=== PATIENT | female | born 1940 | race Caucasian/White ===

== ENCOUNTER → 2020-09-08 18:44 | Outpatient (CLI) | payer MEDICARE, SELFPAY ==
[2020-09-08 19:00] LABS: Alanine Aminotransferase 12 U/L (12-78); Albumin Level 4.1 g/dl (3.5-5.0); Albumin/Globulin Ratio 1.5 (1.1-1.8); Alkaline Phosphatase 90 U/L (38-126); Anion Gap 11.5 mEq/L (5-15); Aspartate Amino Transferase 28 U/L (14-36); Bilirubin,Total 0.5 mg/dl (0.2-1.3); Blood Urea Nitrogen 11 mg/dl (7-17); Calcium 10.5 mg/dl (8.4-10.2); Carbon Dioxide 31 mmol/L (22.0-30.0); Chloride 104 mmol/L (98-107); Chol/HDL Ratio 2.6 (1-3.5); Cholesterol 168 mg/dl (140-200); Estimated Glomerular Filt Rate 81 ml/min (>60); GFR (African American) 97 ML/MIN (>60); Globulin 2.8 g/dL (1.3-3.2); Glucose 69 mg/dl (74-100); HDL Cholesterol 65 mg/dl (40-60); Potassium 4.5 mmoL/L (3.5-5.1); Sodium 142 mmol/L (136-145); Total Protein,Serum 6.9 g/dl (6.3-8.2); Triglycerides 88 mg/dl (30-150); VLDL Cholesterol 18 mg/dL (0-40)
[2020-09-08 19:08] LABS: Basophils # 0.1 K/mm3 (0-0.2); Basophils % 0.8 % (0.1-2.0); Eosinophils # 0.1 K/mm3 (0.0-0.4); Eosinophils % 1.2 % (0.1-12.0); Hematocrit 47.5 % (37.0-47.0); Hemoglobin 15.1 g/dL (12.2-16.2); Lymphocytes # 1.7 K/mm3 (0.7-4.5); Lymphocytes % 24.9 % (10-50); Mean Corpuscular HGB Conc 31.8 g/dL (31.8-35.4); Mean Corpuscular Hemoglobin 32.6 pg (27.0-31.2); Mean Corpuscular Volume 102.6 fl (81-99); Mean Platelet Volume 10.5 fl (7.4-10.4); Monocytes # 0.4 K/mm3 (0.1-1.0); Monocytes % 6.5 % (1.7-9.3); Neutrophils # 4.5 K/mm3 (1.8-7.8); Neutrophils % 66.4 % (37.0-80.0); Platelet Count 373 K/mm3 (142-424); Red Blood Count 4.63 M/mm3 (4.20-5.40); Red Cell Distribution Width 13.3 % (11.5-17.5); White Blood Count 6.7 K/mm3 (4.8-10.8)
[2020-09-08 19:11] LABS: Direct LDL Cholesterol 91.21 mg/dL (100-129)
[2020-09-08 19:17] LABS: 25-OH Vitamin D, Total 22.7 ng/mL (30-100)
[2020-09-08 19:18] LABS: Free T4 (Free Thyroxine) 1.47 ng/dl (0.78-2.19)
[2020-09-08 19:31] LABS: Thyroid Stimulating Hormone 1.35 uIU/mL (0.465-4.68)
[2020-09-08 19:49] LABS: Vitamin B12 604 pg/mL (239-931)
== END ==
PROVIDERS: Visit Provider Family Medicine
DX: E78.5 Hyperlipidemia, unspecified (principal); R42 Dizziness and giddiness; E55.9 Vitamin D deficiency, unspecified
CPT/HCPCS: 80053; 80061; 82306; 82607; 84439; 84443; 85025

== ENCOUNTER → 2021-06-26 11:55 | Outpatient (CLI) | payer MEDICARE, SELFPAY ==
--- NOTE | 2021-06-26 11:58 | XR_ITS ---
PROCEDURE: XR CHEST 2V CLINICAL HISTORY: cough COMPARISON: No exams were available for comparison FINDINGS: The cardiomediastinal silhouette and pulmonary vascularity are within normal limits. The lungs are clear without infiltrates, suspicious nodules, or pleural effusions. No acute bony abnormalities. IMPRESSION: No acute findings. Dictated by: Herbert Ramires MD 06/26/2021 12:28 Herbert Ramires MD in [place] 06/26/2021 12:28
[2021-06-26 15:30] LABS: Adenovirus,PCR Not Detected (NotDetected); Bordetella Pertussis Not Detected (NotDetected); Chlamydophila Pneumoniae, PCR Not Detected (NotDetected); Coronavirus 19, PCR Not Detected (NotDetected); Coronavirus 229E Not Detected (NotDetected); Coronavirus NL63 Not Detected (NotDetected); Coronavirus OC43 Not Detected (NotDetected); Coronovirus HKU1,PCR Not Detected (NotDetected); Human Metapneumovirus Not Detected (NotDetected); Influenza A, PCR Not Detected (NotDetected); Influenza AH1, 2009 Not Detected (NotDetected); Influenza AH1, PCR Not Detected (NotDetected); Influenza AH3,PCR Not Detected (NotDetected); Influenza B, PCR Not Detected (NotDetected); Mycoplasma Pneumoniae, PCR Not Detected (NotDetected); Parainfluenza 1, PCR Not Detected (NotDetected); Parainfluenza 2, PCR Not Detected (NotDetected); Parainfluenza 3, PCR Not Detected (NotDetected); Parainfluenza 4, PCR Not Detected (NotDetected); Respiratory Syncytial Virus Not Detected (NotDetected)
[2021-06-26 15:38] LABS: Basophils % 0.5 % (0.1-2.0); Eosinophils # 0.1 K/mm3 (0.0-0.4); Eosinophils % 1.4 % (0.1-12.0); Hematocrit 46.2 % (37.0-47.0); Hemoglobin 14.6 g/dL (12.2-16.2); Lymphocytes # 1.9 K/mm3 (0.7-4.5); Lymphocytes % 22.8 % (10-50); Mean Corpuscular HGB Conc 31.7 g/dL (31.8-35.4); Mean Corpuscular Hemoglobin 33.2 pg (27.0-31.2); Mean Corpuscular Volume 104.6 fl (81-99); Mean Platelet Volume 10.3 fl (7.4-10.4); Monocytes # 0.6 K/mm3 (0.1-1.0); Monocytes % 6.9 % (1.7-9.3); Neutrophils # 5.8 K/mm3 (1.8-7.8); Neutrophils % 68.3 % (37.0-80.0); Platelet Count 314 K/mm3 (142-424); Red Blood Count 4.42 M/mm3 (4.20-5.40); Red Cell Distribution Width 13.3 % (11.5-17.5); White Blood Count 8.4 K/mm3 (4.8-10.8)
[2021-06-26 16:02] LABS: Alanine Aminotransferase 15 U/L (12-78); Albumin Level 4.1 g/dl (3.5-5.0); Albumin/Globulin Ratio 1.5 (1.1-1.8); Alkaline Phosphatase 72 U/L (38-126); Anion Gap 14.3 mEq/L (5-15); Aspartate Amino Transferase 28 U/L (14-36); Bilirubin,Total 0.6 mg/dl (0.2-1.3); Blood Urea Nitrogen 15 mg/dl (7-17); Calcium 9.8 mg/dl (8.4-10.2); Carbon Dioxide 29 mmol/L (22.0-30.0); Chloride 104 mmol/L (98-107); Estimated Glomerular Filt Rate 80 ml/min (>60); GFR (African American) 97 ML/MIN (>60); Globulin 2.7 g/dL (1.3-3.2); Glucose 59 mg/dl (74-100); Potassium 5.3 mmoL/L (3.5-5.1); Sodium 142 mmol/L (136-145); Total Protein,Serum 6.8 g/dl (6.3-8.2)
[2021-06-26 16:19] LABS: Free T4 (Free Thyroxine) 1.74 ng/dl (0.78-2.19)
[2021-06-26 16:33] LABS: Thyroid Stimulating Hormone 1.23 uIU/mL (0.465-4.68)
[2021-06-27 11:17] LABS: Rhinovirus/Enterovirus Detected (NotDetected)
== END ==
PROVIDERS: PCP Family Medicine; Visit Provider Emergency Medicine
DX: R05 Cough (principal); E05.90 Thyrotoxicosis, unspecified without thyrotoxic crisis or storm; B34.1 Enterovirus infection, unspecified
CPT/HCPCS: 71046; 80053; 84439; 84443; 85025; 87581; 87633; 87798

== ENCOUNTER 2021-08-12 09:31 | Outpatient (CLI) | payer MEDICARE, SELFPAY ==
[2021-08-12] VITALS (7 sets, daily range): BP systolic 133–144; BP diastolic 53–84; PULSE 60–68; RESP 16; TEMP 36.9–37.1; O2SAT 98–99
== END 2021-08-12 12:38 | disposition home or self-care (01) ==
LOC: INF 09:34
PROVIDERS: PCP Family Medicine; Visit Provider Family Medicine
DX: U07.1 COVID-19 (principal)
CPT/HCPCS: 96365

== ENCOUNTER → 2022-06-01 06:35 | Outpatient (CLI) | payer MEDICARE, SELFPAY ==
[2022-05-31 18:40] LABS: Basophils # 0.1 K/mm3 (0-0.2); Basophils % 1.5 % (0.1-2.0); Eosinophils # 0.2 K/mm3 (0.0-0.4); Eosinophils % 3.8 % (0.1-12.0); Hemoglobin 13.4 g/dL (12.2-16.2); Lymphocytes # 1.4 K/mm3 (0.7-4.5); Mean Corpuscular Hemoglobin 33.9 pg (27.0-31.2); Mean Corpuscular Volume 105.9 fl (81-99); Mean Platelet Volume 9.4 fl (7.4-10.4); Monocytes # 0.4 K/mm3 (0.1-1.0); Neutrophils % 64.6 % (37.0-80.0); Platelet Count 319 K/mm3 (142-424); Red Blood Count 3.96 M/mm3 (4.20-5.40); Red Cell Distribution Width 13.6 % (11.5-17.5); White Blood Count 6.3 K/mm3 (4.8-10.8)
[2022-05-31 18:59] LABS: Alanine Aminotransferase 18 U/L (12-78); Albumin Level 3.6 g/dl (3.5-5.0); Albumin/Globulin Ratio 1.4 (1.1-1.8); Alkaline Phosphatase 71 U/L (38-126); Aspartate Amino Transferase 26 U/L (14-36); Blood Urea Nitrogen 12 mg/dl (7-17); Carbon Dioxide 28 mmol/L (22.0-30.0); Chloride 108 mmol/L (98-107); Chol/HDL Ratio 3.2 (1-3.5); Cholesterol 164 mg/dl (140-200); Estimated Glomerular Filt Rate 80 ml/min (>60); GFR (African American) 97 ML/MIN (>60); Globulin 2.6 g/dL (1.3-3.2); Glucose 131 mg/dl (74-100); HDL Cholesterol 52 mg/dl (40-60); Sodium 139 mmol/L (136-145); Total Protein,Serum 6.2 g/dl (6.3-8.2); Triglycerides 84 mg/dl (30-150); VLDL Cholesterol 17 mg/dL (0-40)
[2022-05-31 19:02] LABS: Bilirubin,Total < 0.1 mg/dl (0.2-1.3)
[2022-05-31 19:03] LABS: Hemoglobin A1C 5.7 % (4.0-6.0)
[2022-05-31 19:33] LABS: Thyroid Stimulating Hormone 0.87 uIU/mL (0.465-4.68)
== END ==
PROVIDERS: PCP Family Medicine; Visit Provider Family Medicine
DX: E11.9 Type 2 diabetes mellitus without complications (principal); J32.9 Chronic sinusitis, unspecified
CPT/HCPCS: 80053; 80061; 83036; 84443; 85025

== ENCOUNTER → 2022-10-23 09:02 | Outpatient (CLI) | payer MEDICARE, SELFPAY ==
--- NOTE | 2022-10-23 09:02 | CT_ITS ---
FINAL REPORT TECHNIQUE: Axial images were obtained from the lung apex to the mid abdomen by computed tomography. Coronal reformatted images were obtained. This study was performed with techniques to keep radiation doses as low as reasonably achievable, (ALARA). Individualized dose reduction techniques using automated exposure control or adjustment of mA and/or kV according to the patient''s size were employed. CLINICAL HISTORY: Chronic cough FINDINGS: There is no axillary adenopathy. There is no hilar or mediastinal adenopathy. Heart size is normal. 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 There is no pericardial or pleural effusion. Limited images of the upper abdomen are unremarkable. The lung window images demonstrates mild pulmonary scarring. There are mild patchy pulmonary ground-glass opacities which may represent pneumonia or edema. There are multiple less than 1 cm bilateral pulmonary nodules. In addition, there are focal opacities in the right middle lobe and lingula, likely inflammatory and may represent pneumonia or mycobacterial/fungal diseases. IMPRESSION: Mild patchy pulmonary ground-glass opacities may represent pneumonia or edema. Focal opacities in the right middle lobe and lingula, likely inflammatory and may represent pneumonia or mycobacterial/fungal diseases. These abnormalities could be further evaluated with follow-up CT in 6 months. Reviewed, Interpreted and Dictated by Marky Denny III, MD Transcribed by Christy Rene Authenticated and [facility]
== END ==
PROVIDERS: PCP Family Medicine; Visit Provider Internal Medicine Pulmonary Disease
DX: R91.8 Other nonspecific abnormal finding of lung field (principal); R06.02 Shortness of breath
CPT/HCPCS: 71250; 94060; 94618; 94727; 94729

== ENCOUNTER → 2022-10-31 14:47 | Outpatient (CLI) | payer MEDICARE, SELFPAY | PROVIDERS: PCP Family Medicine; Visit Provider Internal Medicine Pulmonary Disease | DX: R06.02 Shortness of breath (principal) | CPT/HCPCS: 87070; 87077; 87116; 87186; 87205; 87206 ==

== ENCOUNTER → 2022-12-12 08:49 | Outpatient (CLI) | payer MEDICARE, SELFPAY ==
--- NOTE | 2022-12-12 08:54 | XR_ITS ---
FINAL REPORT CLINICAL HISTORY: pneumonia follow-up COMPARISON: 06/26/2021 FINDINGS: The heart is normal in size. The mediastinum is unremarkable. No acute pulmonary process. No pleural effusions. There is no pneumothorax. No acute osseous abnormality. IMPRESSION: No acute process. Reviewed, Interpreted and Dictated by Avtar Harrington MD Transcribed by Lesli Grayson Authenticated and [facility]
== END ==
PROVIDERS: PCP Family Medicine; Visit Provider Internal Medicine Pulmonary Disease
DX: R06.02 Shortness of breath (principal)
CPT/HCPCS: 71046

== ENCOUNTER → 2023-01-17 14:22 | Outpatient (CLI) | payer MEDICARE, SELFPAY ==
--- NOTE | 2023-01-17 14:34 | CT_ITS ---
PROCEDURE INFORMATION: Exam: CT Head Without Contrast Exam date and time: 01/17/2023 2:44 PM Age: 82 years old Clinical indication: Visual disturbance; Additional info: Vision changes TECHNIQUE: Imaging protocol: Computed tomography of the head without contrast. Radiation optimization: All CT scans at this facility use at least one of these dose optimization techniques: automated exposure control; mA and/or kV adjustment per patient size (includes targeted exams where dose is matched to clinical indication); or iterative reconstruction. REPORTING DATA: Count of CT and Cardiac NM exams in prior 12 months: This patient has received [address] and 0 known cardiac nuclear medicine studies in the 12 months prior to the current study. COMPARISON: No relevant prior studies available. FINDINGS: Brain: Prominent sulci. Patchy hypodensity of the cerebral white matter which are nonspecific but likely secondary to microangiopathic changes. Cerebral ventricles: The ventricles are prominent secondary to diffuse volume loss/atrophy. Paranasal sinuses: Visualized sinuses are unremarkable. No fluid levels. Mastoid air cells: Visualized mastoid air cells are well aerated. Bones/joints: Unremarkable. No acute fracture. Soft tissues: Unremarkable. IMPRESSION: Chronic age related changes but no evidence of acute intracranial pathology.
== END ==
PROVIDERS: PCP Family Medicine; Visit Provider Family Medicine
DX: H53.9 Unspecified visual disturbance (principal)
CPT/HCPCS: 70450

== ENCOUNTER → 2023-06-21 23:38 | Outpatient (CLI) | payer MEDICARE, SELFPAY ==
[2023-06-21 18:58] LABS: Basophils % 0.2 % (0.1-2.0); Eosinophils # 0.1 K/mm3 (0.0-0.4); Eosinophils % 0.6 % (0.1-12.0); Hematocrit 44.6 % (37.0-47.0); Hemoglobin 14.3 g/dL (12.2-16.2); Lymphocytes # 2.2 K/mm3 (0.7-4.5); Lymphocytes % 24.3 % (10-50); Mean Corpuscular HGB Conc 32.1 g/dL (31.8-35.4); Mean Corpuscular Hemoglobin 34.8 pg (27.0-31.2); Mean Corpuscular Volume 108.3 fl (81-99); Mean Platelet Volume 9.4 fl (7.4-10.4); Monocytes # 0.7 K/mm3 (0.1-1.0); Monocytes % 7.9 % (1.7-9.3); Neutrophils # 6.1 K/mm3 (1.8-7.8); Platelet Count 292 K/mm3 (142-424); Red Blood Count 4.12 M/mm3 (4.20-5.40); White Blood Count 9.1 K/mm3 (4.8-10.8)
[2023-06-21 19:31] LABS: Alanine Aminotransferase 29 U/L (12-78); Albumin Level 3.8 g/dl (3.5-5.0); Albumin/Globulin Ratio 1.4 (1.1-1.8); Alkaline Phosphatase 100 U/L (38-126); Anion Gap 12.1 mEq/L (5-15); Aspartate Amino Transferase 30 U/L (14-36); Bilirubin,Total 0.8 mg/dl (0.2-1.3); Blood Urea Nitrogen 18 mg/dl (7-17); Calcium 10.2 mg/dl (8.4-10.2); Carbon Dioxide 29 mmol/L (22.0-30.0); Chloride 102 mmol/L (98-107); Chol/HDL Ratio 2.7 (1-3.5); Cholesterol 173 mg/dl (140-200); Estimated Glomerular Filt Rate 69 ml/min (>60); GFR (African American) 83 ML/MIN (>60); Globulin 2.7 g/dL (1.3-3.2); Glucose 76 mg/dl (74-100); HDL Cholesterol 65 mg/dl (40-60); Potassium 5.1 mmoL/L (3.5-5.1); Sodium 138 mmol/L (136-145); Total Protein,Serum 6.5 g/dl (6.3-8.2); Triglycerides 93 mg/dl (30-150); VLDL Cholesterol 19 mg/dL (0-40)
[2023-06-21 19:44] LABS: Direct LDL Cholesterol 89.72 mg/dL (100-129)
== END ==
PROVIDERS: PCP Family Medicine; Visit Provider Family Medicine
DX: R06.09 Other forms of dyspnea (principal); R42 Dizziness and giddiness; G45.8 Other transient cerebral ischemic attacks and related syndromes; Z79.899 Other long term (current) drug therapy
CPT/HCPCS: 80053; 80061; 84443; 85025

== ENCOUNTER → 2023-07-17 12:00 | Outpatient (CLI) | payer MEDICARE, SELFPAY ==
[2023-07-17 18:20] LABS: Chloride 99 mmol/L (98-107); Potassium 4.8 mmoL/L (3.5-5.1); Sodium 135 mmol/L (136-145)
[2023-07-17 18:23] LABS: Alanine Aminotransferase 38 U/L (12-78); Albumin Level 3.9 g/dl (3.5-5.0); Albumin/Globulin Ratio 1.4 (1.1-1.8); Alkaline Phosphatase 110 U/L (38-126); Anion Gap 13.8 mEq/L (5-15); Aspartate Amino Transferase 36 U/L (14-36); Bilirubin,Total 0.5 mg/dl (0.2-1.3); Blood Urea Nitrogen 24 mg/dl (7-17); Calcium 10.7 mg/dl (8.4-10.2); Carbon Dioxide 27 mmol/L (22.0-30.0); Estimated Glomerular Filt Rate 53 ml/min (>60); GFR (African American) 64 ML/MIN (>60); Globulin 2.7 g/dL (1.3-3.2); Glucose 139 mg/dl (74-100); Magnesium 1.7 mg/dl (1.6-2.3); Total Protein,Serum 6.6 g/dl (6.3-8.2)
[2023-07-17 22:19] LABS: Vitamin B12 > 1000 pg/mL (239-931)
== END ==
PROVIDERS: PCP Family Medicine; Visit Provider Family Medicine
DX: H53.9 Unspecified visual disturbance (principal); R79.89 Other specified abnormal findings of blood chemistry; Z79.899 Other long term (current) drug therapy
CPT/HCPCS: 80053; 82607; 83735

== ENCOUNTER 2023-11-07 12:29 | Outpatient (CLI) | payer MEDICARE, SELFPAY ==
--- NOTE | 2023-11-07 12:33 | CT_ITS ---
FINAL REPORT TECHNIQUE: Axial CT images were performed from the lung apices through the upper abdomen. Coronal and sagittal reformats were submitted. This study was performed with techniques to keep radiation doses as low as reasonably achievable (ALARA). Individualized dose reduction techniques using automated exposure control or adjustment of mA and/or kV according to the patient's size were employed. CLINICAL HISTORY: Lung nodule follow-up COMPARISON: 10/23/2022 FINDINGS: An aberrant right subclavian artery is a normal variant is present. There is no axillary adenopathy. There are multiple small nonspecific mediastinal nodes identified. Mild scarring is present. Heart size is normal. There is no pericardial effusion. A small left pleural effusion is present, slightly larger than noted on the prior CT. Limited images of the upper abdomen reveal a cyst in the upper pole of the left kidney. The gallbladder has been surgically removed. There are right middle lobe and lingular opacities once again identified, favor inflammatory. The lingular opacities are worse than noted on the prior CT of 2021. There is a 5 mm right lower lobe nodule, stable, seen on axial image #51. A ground glass nodule in the left upper lobe is also stable. IMPRESSION: Right middle lobe and lingular opacities remain present, more prominent in the lingula than on the prior exam. There is also a small but worsening left pleural effusion. Recommend follow-up CT in 12 months as clinically indicated. Reviewed, Interpreted and Dictated by Marky Denny III, MD Transcribed by Shaneka James Authenticated and [facility]
== END 2023-11-07 23:59 ==
LOC: RAD 12:30
PROVIDERS: PCP Family Medicine; Visit Provider Internal Medicine Pulmonary Disease
DX: R91.8 Other nonspecific abnormal finding of lung field (principal)
CPT/HCPCS: 71250

== ENCOUNTER 2025-05-11 10:54 | Outpatient (CLI) | payer MEDICARE, SELFPAY ==
--- NOTE | 2025-05-11 10:57 | XR_ITS ---
FINAL REPORT TECHNIQUE: Chest PA & Lateral CLINICAL HISTORY: SOB COMPARISON: 12/12/2022 FINDINGS: CHEST 2 VIEWS: 2 views of the chest were performed. The heart size is normal. The mediastinum is within normal limits. There is no acute cardiopulmonary process. There are no pleural effusions. There is no pneumothorax. The bony thorax appears intact. IMPRESSION: No acute cardiopulmonary process. Reviewed, Interpreted and Dictated by Avtar Harrington MD Transcribed by Shaneka James Authenticated and [facility]
--- OUTSIDE RECORDS SUMMARY | 2025-05-11 10:58 | XMS_ITS | Clinical Summary ---
Author Organization [facility] Address [address] [place] [address] Care Team Providers Care Steward/Stewardess Wine Name Role Phone Efrem Esteban MD Primary Care Provider [phone] Family History Medical History Relation Name Comments Valvular heart disease Father Other cancer Mother Relation Name Status Comments Father Mother Social History Tobacco Use Types Packs/Day Years Used Date Smoking Tobacco: Never Assessed Comments Unknown Sex and Gender Information Value Date Recorded Sex Assigned at Not on file Legal Sex Female 8:09 PM EDT Gender Identity Not on file Sexual Orientation Not on file Last Filed Vital Signs Vital Sign Reading Time Taken Comments Blood Pressure 132/70 02/15/2021 11:29 AM EDT Pulse 64 02/15/2021 11:29 AM EDT Temperature 36.6 C (97.8 F) 02/15/2021 11:29 AM EDT Respiratory Rate 16 02/15/2021 11:29 AM EDT Oxygen Saturation - - Inhaled Oxygen Concentration - - Weight 66.8 kg (147 lb 4.3 oz) 02/15/2021 11:29 AM EDT Height 162.6 cm (5' 4 ) 02/15/2021 11:29 AM EDT Body Mass Index 25.28 02/15/2021 11:29 AM EDT Plan of Treatment Health Maintenance Due Date Last Done Comments [facility]-Bone Density Scan 1940 [facility]-Depression Screening 1940 [facility]-Infant/Child/Adol SDOH Screenings 1940 [facility]- SDOH Screenings 1957 [facility]-Adult SDOH Screenings 1957 [facility]-DTaP,Tdap,and Td Vaccines (1 - Tdap) 1958 [facility]-Zoster Vaccines (2 of 3) 12/02/2009 10/07/2009 [facility]-RSV Vaccine: 60+ Years or (1 - 1-dose 75+ series) 2014 [facility]-Pneumococcal Vaccine: 50+ Years (2 of 2 - PCV) 09/08/2021 09/08/2020 [id number] Vaccine (3 - season) 2024 01/04/2021, 12/07/2020 [facility]-Influenza Vaccine (#1) 07/05/202511/12, 09/16/2021, 08/31/2016 HPV Vaccines Aged Out No longer eligi ble based on patient's age to complete this topic [facility]-HIB Vaccines Aged Out No longer e ligible based on patient's age to complete this topic [facility]-Hepatitis A Vaccines Aged Out No longer eligible based on patient's age to complete this topic [facility]-IPV Vaccines Aged Out No longer e ligible based on patient's age to complete this topic [facility]-Rotavirus Vaccines Aged Out No lo nger eligible based on patient's age to complete this topic Insurance * Guarantor: Maylin Payan Account Type Relation to Patient Date of Phone Billing Address Personal/Family Self 1940 [address] [employer] Care Teams Steward/Stewardess Wine Relationship Specialty Start Date End Date Efrem Esteban MD [address] [place] [id number] PCP - General 03/17/21
--- OUTSIDE RECORDS SUMMARY | 2025-05-11 10:58 | XMS_ITS | Clinical Summary ---
Author Organization [facility] Address [facility] [place] [address] Phone Care Team Providers Care Gear Setter Name Role Phone Berlin Marlow MD Primary Care Provider [phone] Allergies Active Allergy Reactions Criticality Noted Date Comments Azithromycin Nausea Only 11/23/2009 Clarithromycin Rash Low 06/12/2018 Doxycycline Monohydrate Other (See Comments) Penicillins Itching Low 06/04/2008 Sulfa (Sulfonamide Antibiotics) Itching,Hives Low 0 02/04/2009 Medications levothyroxine (SYNTHROID) 100 mcg tablet Take by mouth daily. Active ezetimibe (ZETIA) 10 mg tablet Take by mouth daily. Active pantoprazole (PROTONIX) 20 mg Take 1 Tab by mouth daily. 90 Tab 0 3 Active acetaminophen (TYLENOL) 500 mg Oral Tablet Take 2 Tabs by mouth every 8 hours as needed. 60 Tab 8 Active tiZANidine (ZANAFLEX) 2 mg Oral Tablet Take 2 Tabs by mouth every 8 hours as needed for Other (muscle relaxant). 60 Tab 8 Active ondansetron (ZOFRAN) 4 mg Oral Tablet Take 1 Tab by mouth every 6 hours as needed for Nausea. 30 Tab 1 8 Active clobetasol (TEMOVATE) 0.05 % sclp Solution Apply topically to affected areas up to twice daily as needed for two weeks then take a week off. Do not use on face, groin or armpits. 50 mL 2 9 Active montelukast (SINGULAIR) 10 mg Oral Tablet Take by mouth every evening. Active celecoxib (CELEBREX) 100 mg Oral CapsuleIndicati ons:osteoarthri tis Take 200 mg by mouth daily. Indications: joint damage causing pain and loss of function Active albuterol (PROVENTIL HFA; VENTOLIN HFA) 90 mcg/actuation Inhl HFA Aerosol Inhaler Inhale 2 Puffs into the lungs as needed (Every 4 hours as needed). Active aspirin 81 mg Oral Tablet, Chewable Take 1 Tablet by mouth daily. 30 Tablet 2 Active atorvastatin (LIPITOR) 40 mg Oral Tablet Take 1 Tablet by mouth nightly. 30 Tablet 2 Active fluticasone propionate (FLONASE) 50 mcg/actuation Nasl Mil[place], Suspension 2 Sprays by Nasal route daily. Active diazePAM (VALIUM) 5 mg Oral Tablet take 0.5-1 tablet by oral route every 8 hours as needed Active triamcinolone (NASACORT) 55 mcg Nasl Aerosol, SprayIndication s:Chronic rhinitis 1 Milroy by Nasal route 2 times daily. 16 mL 5 4 Active Active Problems Problem Noted Date Diagnosed Date Postural dizziness with presyncope 06/23/2022 Hypothyroid 06/23/2022 Chest pain, atypical 01/23/2017 Lung nodules 05/03/2011 Overview (05/03/2011): Stable at two years-no f/u needed Surgical History Surgery Date Site/Laterality Comments HYSTERECTOMY TONSILLECTOMY SHOULDER SURGERY rt CHOLECYSTECTOMY, LAPAROSCOPIC 01/07/2013 N/ A LAPAROSCOPIC CHOLECYSTECTOMY ; Surgeon: Agnes Torrez MD; Location: [facility]; Service: General UMBILICAL HERNIA REPAIR 01/07/2013 & REPAIR UMBILICAL HERNIA; Surgeon: Agnes Torrez MD; Location: [facility]; Service: General HIP ARTHROPLASTY 01/07/2018 Hip/Right RIGHT TOTAL HIP REPLACEMENT; Surgeon: Martin Basilio MD; Location: [facility]; Service: Orthopedics Medical devices from this surgery are in the Medical Devices section. Medical History Medical History Date Comments Hypothyroid Arthritis Hyperlipidemia Heartburn Hiatal hernia Headache migraine Urinary incontinence stress Asthma Family History Medical History Relation Name Comments Cancer Mother Diabetes Sister Heart Failure Sister Anesth Problems Neg Hx Relation Name Status Comments Mother Sister Social History Tobacco Use Types Packs/Day Years Used Date Smoking Tobacco: Never Smokeless Tobacco: Never Tobacco Cessation:Counseling Given: Not Answered Alcohol Use Standard Drinks/Week Comments No 0 (1 standard drink = 0.6 oz pur e alcohol) Comments No Sex and Gender Information Value Date Recorded Sex Assigned at Not on file Legal Sex Female 11:11 AM EDT Gender Identity Not on file Sexual Orientation Not on file Obstetrics History Last Filed Vital Signs Vital Sign Reading Time Taken Comments Blood Pressure 170/73 06/10/2024 12:56 PM EDT Pulse 92 06/10/2024 12:56 PM EDT Temperature 36.7 C (98 F) 06/10/2024 12:55 PM EDT Respiratory Rate 16 06/23/2022 2:49 PM EDT Oxygen Saturation 100% 06/23/2022 2:49 PM EDT Inhaled Oxygen Concentration - - Weight 74.8 kg (165 lb) 06/10/2024 12:55 PM EDT Height 162.6 cm (5' 4 ) 06/10/2024 12:55 PM EDT Body Mass Index 28.32 06/10/2024 12:55 PM EDT Plan of Treatment Health Maintenance Due Date Last Done Comments Wellness Exam Medicare 1943 DTaP/TDaP/Td (1 - Tdap) 1958 Zoster (2 of 3) 12/02/2009 10/07/2009 RSV or 60+ (1 - 1-dose 75+ series) 2014 COVID-19 Vaccine ( - season) 2024 01/04/2021, 12/07/2020 Influenza Vaccine (#1) 2025 , 11/12/2022, 09/16/2021, Additional history exists Bone Density Screening Completed 09/01/2015, 2014 Pneumococcal Vaccine 50+ Completed 020, 07/18/2016, 11/04/2007 Hepatitis B Vaccine Aged Out No longe r eligible based on patient's age to complete this topic Meningococcal B Vaccine Aged Out No l onger eligible based on patient's age to complete this topic Medical Devices Implanted Type Area Transit Planner Device Identifier Shelf Expiration Date Model / Serial / Lot 6.5 Cancellous Bone Screw 30mm - [id number] Implanted:Qty: 1 on 01/07/2018 by Martin Basilio MD at [facility] Right: Hip DAX:[facility] [facility] 09/24/2022 [id number] / / [id number] Shell Acetabular Hole Cluster Hemispherical Tritanium D 52mm - [id number] Implanted:Qty: 1 on 01/07/2018 by Martin Basilio MD at [facility] Right: Hip DAX:[employer] [facility] 11/14/2022 [id number] / / [id number] Insert Trident X 3 0 Degree 36mm D - [id number] Implanted:Qty: 1 on 01/07/2018 by Martin Basilio MD at [facility] Right: Hip DAX:[employer] [facility] 08/09/2022 [id number] / / [id number] Cancellous Bone Screw 25mm - [id number] Implanted:Qty: 1 on 01/07/2018 by Martin Basilio MD at [facility] Right: Hip DAX:[employer] [facility] 11/13/[id number] / / [id number] Biolox+ Delta Head 36mm/-5 - [id number] Implanted:Qty: 1 on 01/07/2018 by Martin Basilio MD at [facility] Right: Hip DAX:[employer] [facility] 10/07/2022 [id number] / / [id number] Size 4 Accolade Ii 127 Deg - [id number] Implanted:Qty: 1 on 01/07/2018 by Martin Basilio MD at [facility] Right: Hip DAX:[facility] [facility] 10/09/2022 [id number] / / [id number] Procedures Procedure Name Priority Date/Time Associated Diagnosis Comments DX BONE DENSITY AXIAL SKELETON Routine 09/01/2015 10:50 AM EDT Osteopenia from Last 3 Months or Most Recently Relevant to Health Maintenance Results * DX BONE DENSITY AXIAL SKELETON (09/01/2015 10:50 AM EDT) Anatomical Region Laterality Modality Dexa Scan Narrative 09/08/2015 11:09 AM EST A dexa scan was performed. This exam was read and signed by a Radiologist. The signed final Dexa report should have already been faxed to the referring Doctor. us Berlin Marlow MD IMG DEXA ORDERABLES Final Result from Last 3 Months or Most Recently Relevant to Health Maintenance Insurance * Guarantor: Maylin Payan Account Type Relation to Patient Date of Phone Billing Address [place] Personal Family Self Advance Directives For more information, please contact: [phone] * Full Code (Latest Code Status on File) Date Activated Date Inactivated Comments 06/23/2022 7:54 AM 06/23/2022 10:01 PM * Full Code Date Activated Date Inactivated Comments 01/07/2018 8:52 PM 01/10/2018 7:44 PM Care Teams Gear Setter Relationship Specialty Start Date End Date Berlin Marlow MD PCP - General 04/11/11
== END 2025-05-11 23:59 | disposition home or self-care (01) ==
LOC: RAD 10:55
PROVIDERS: PCP Nurse Practitioner; Visit Provider Internal Medicine Pulmonary Disease
DX: R06.02 Shortness of breath (principal)
CPT/HCPCS: 71046

== ENCOUNTER 2025-06-17 09:54 | Outpatient (CLI) | payer MEDICARE, SELFPAY ==
--- OUTSIDE RECORDS SUMMARY | 2025-06-17 09:57 | XMS_ITS | Clinical Summary ---
Author Organization 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 Medications Medication Instructions Start Date Stop Date Generic Name NDC Provider IMITREX 100 MG TABS One tab prn 9 SUMATRIPTAN SUCCINATE 92700305985 Aicha Lara MA SYNTHROID TABS one daily Non-Anderson 8 LEVOTHYROXINE SODIUM TABS [id number] Aicha Lara MA MECLIZINE HCL TABLET PRN Non-Anderson 8 MECLIZINE HCL TABS 70580349760 Aicha Lara MA PROLERA One injection monthly 9 PROLERA Ayo Schulz RN ZETIA 10 MG TABS One tab daily 9 EZETIMIBE [id number] Ayo Schulz RN ALEVE 220 MG TABS PRN 9 NAPROXEN SODIUM 94073813494 Ayo Schulz RN IMITREX 100 MG TABS One tab prn 9 SUMATRIPTAN SUCCINATE [id number] Ayo Schulz RN PROTONIX 20 MG TBEC One tab daily 9 PANTOPRAZOLE SODIUM 32362835434 Ayo Schulz RN L-THYROXINE 100 mcg daily 9 L-THYROXINE Ayo Schulz RN Medications Administered No information available. Allergies, Adverse Reactions, Alerts Allergy Name Reaction Description Start Date Severity Statu s Provider SULFA Rash and itching Moderate De bbie Lili BAEZ PCN Rash & Itching Moderate Concha ie Lili BAEZ Results Date Name Value Unit Range Flag Description Clinical Lists Update: MRI b illing GFR 83 mL/min Glomerular fi ltration rate/1.73 sq M.predicted among non-blacks [Volume Rate/Area] in Serum, Plasma or Blood by Creatinine-based formula (MDRD) Plan of Care Type Date Detail Pending order MRI Brain w/wo ( Routine Sequences) Pending order MRI Brain w/o & w Gadolinium Pending order MRI Brain w/o & w Gadolinium Pending order MRI Brain w/o & w Gadolinium Pending order MRI Brain w/o & w Gadolinium Pending order MRI Brain w/o & w Gadolinium Pending order MRI Brain w/o & w Gadolinium Pending order MRI Brain w/o & w Gadolinium Pending order MRI Brain w/o & w Gadolinium Pending order MRI Brain w/o & w Gadolinium Pending order MRI Brain w/o & w Gadolinium Pending order MRI Brain w/o & w/contrast Pending order MRI Brain w/o & w/contrast Procedures Code Procedure Name Date Entry Date [facility]-[id number] Flu Shot Previously Received [facility]-[id number] Medications Documented [id number] MRI, Brain, w/o and w/contrast [id number] [facility] 00664 MRI Brain (with and without) [id number] [facility] 71013 MRI Brain (with and without) [id number] [facility] 27448 MRI Brain (with and without) [id number] [facility] 35639 MRI Brain (with and without) [id number] [facility] Vital Signs Date Name Value Unit Description Height 63 [in_us] height E&M BMI (Body Mass Index) 35.78 kg/m2 Bod y Mass Index (Ratio) BP Diastolic 72 mm[Hg] blood pressu re, diastolic BP Systolic 122 mm[Hg] blood pressur e, systolic Body Temperature 98.0 [degF] temperat ure E&M Heart Rate 74 /min pulse rate Weight Measured 202 [lb_av] weight E& M Weight Measured 202 [lb_av] weight E& M Immunizations No information available. Advance Directives No information available.
--- OUTSIDE RECORDS SUMMARY | 2025-06-17 09:58 | XMS_ITS | Clinical Summary ---
Author Organization [facility] Address [address] [place] [address] Care Team Providers Care Personal Development Coach Name Role Phone Berlin Marlow MD Primary Care Provider [phone] Allergies Active Allergy Reactions Criticality Noted Date Comments Penicillins Itching 02/04/2009 Sulfa Antibiotics Itching 02/04/2009 Medications fluticasone (FLONASE) 50 MCG/ACT nasal spray 2 sprays into the nostril(s) as directed by provider Daily. Active montelukast (SINGULAIR) 10 MG tablet Take 1 tablet by mouth Every Night. Active celecoxib (CeleBREX) 200 MG capsule Take 1 capsule by mouth Daily. Active levothyroxine (Synthroid) 100 MCG tablet Take 1 tablet by mouth Daily. Active diazePAM (VALIUM) 5 MG tablet Take 1 tablet by mouth Daily As Needed for Anxiety. Active aspirin 81 MG chewable tablet Chew 1 tablet Daily. 21 tablet 02/11/2023 Active atorvastatin (LIPITOR) 80 MG tablet Take 1 tablet by mouth Every Night. 30 tablet 02/11/2023 Active clopidogrel (PLAVIX) 75 MG tablet Take 1 tablet by mouth Daily. 30 tablet 02/11/2023 Active lisinopril (PRINIVIL,ZESTR IL) 5 MG tablet Take 1 tablet by mouth Daily. 30 tablet 02/11/2023 Active Active Problems Problem Noted Date Diagnosed Date Paresthesias 02/11/2023 Facial paresthesia 02/10/2023 Elevated blood pressure reading 02/10/2023 Hypothyroidism (acquired) 02/10/2023 GERD without esophagitis 02/10/2023 Asthma 02/10/2023 Family History Medical History Relation Name Comments Heart disease Father Cancer Mother Relation Name Status Comments Father Mother Social History Tobacco Use Types Packs/Day Years Used Date Smoking Tobacco: Never Smokeless Tobacco: Never Tobacco Cessation:Counseling Given: No Alcohol Use Standard Drinks/Week Comments Never 0 (1 standard drink = 0.6 oz pur e alcohol) AUDIT-C Answer Date Recorded Q1: How often do you have a drink containing alcohol? Never 02/10/2023 Q2: How many drinks containi ng alcohol do you have on a typical day when you are drinking? Patient does not drink Q3: How often do you have si x or more drinks on one occasion? Never 02/10/2023 Hunger Vital Sign Answer Date Recorded Within the past 12 months, y ou worried that your food would run out before you got the money to buy more. Never true 02/12/20 23 Within the past 12 months, t he food you bought just didn't last and you didn't have money to get more. Never true 02/11/2023 Abuse Screen Answer Date Recorded Unsafe at Home or Work/School Not on file Feels Threatened by Someone? Not on file Does Anyone Keep You from Co ntacting Others or Doint Things Outside the Home? Not on file 02/18/2024 Physical Sign of Abuse Present Not on file 0 02/18/2024 Housing Stability Answer Date Recorded Current Living Arrangements Not on file 02/02 Potentially Unsafe Housing Conditions Not on saima e 02/18/2024 Family and Community Support Answer Sheldon e Recorded Help with Day-to-Day Activities Not on file 08/16/2023 Lonely or Isolated Not on file 08/16/2023 Employment Answer Date Recorded Do you want help finding or keeping work or a katlyn b? Not on file 08/16/2023 Disabilities Answer Date Recorded Concentrating, Remembering, or Making Decisions Difficulty Not on file 02/18/2024 Doing Errands Independently Difficulty Not on fi le 02/18/2024 Education Answer Date Recorded Help with school or training? Not on file Preferred Language Not on file 02/18/2024 Comments Unknown Sex and Gender Information Value Date Recorded Sex Assigned at Not on file Legal Sex Female 6:13 PM EDT Gender Identity Not on file Sexual Orientation Not on file Last Filed Vital Signs Vital Sign Reading Time Taken Comments Blood Pressure 157/63 02/11/2023 12:22 PM EDT Pulse 58 02/11/2023 12:22 PM EDT Temperature 36.5 C (97.7 F) 02/11/2023 12:22 PM EDT Respiratory Rate 16 02/11/2023 12:2 2 PM EDT Oxygen Saturation 96% 02/11/2023 12: 22 PM EDT Inhaled Oxygen Concentration - - Weight 69.3 kg (152 lb 11.2 oz) 02/10/2023 9:15 PM EDT Height 162.6 cm (5' 4 ) 02/10/2023 9:15 PM EDT Body Mass Index 26.21 02/10/2023 9:15 PM EDT Plan of Treatment Health Maintenance Due Date Last Done Comments ANNUAL PHYSICAL 1940 TDAP/TD VACCINES (1 - Tdap) 1959 ZOSTER VACCINE (2 of 3) 12/02/2009 10/07/2009 RSV Vaccine - Adults (1 - 1- dose 75+ series) 2014 DXA SCAN 06/25/2020 06/25/2018, 09/01/2015 COVID-19 Vaccine (1 - 2023-2 5 season) 2024 INFLUENZA VACCINE 08/04/2025 11/12/2022, , 09/08/2020, Additional history exists Pneumococcal Vaccine 50+ Completed 020, 07/18/2016, 11/04/[address] [place] [address] MEDICARE REPLACE Advance Directives * CPR (Attempt to Resuscitate) (Latest Code Status on File) Date Activated Date Inactivated Comments 02/10/2023 9:16 PM 02/11/2023 5:41 PM Question Answer Comments Code Status (Patient has no pulse and is not breathing): CPR (Attempt to Resuscitate) Medical Interventions (Patie nt has pulse or is breathing): Full Support Care Teams Personal Development Coach Relationship Specialty Start Date End Date Berlin Marlow MD [address] [place] [address] PCP - General Family Medicine 02/10/23
--- OUTSIDE RECORDS SUMMARY | 2025-06-17 09:58 | XMS_ITS | Clinical Summary ---
Author Organization [facility] Address [address] [place] [address] Care Team Providers Care Stagecraft Teacher Name Role Phone Efrem Esteban MD Primary Care Provider [phone] Family History Medical History Relation Name Comments [...] (2 of 2 - PCV) 09/08/2021 09/08/2020 [id number] Vaccine (3 - season) 2024 01/04/2021, 12/07/2020 [...] Billing Address Personal/Family Self 1940 [address] [employer] Care Teams Stagecraft Teacher Relationship Specialty Start Date End Date Efrem Esteban MD [address] [place] [id number] PCP - General 03/17/21
--- OUTSIDE RECORDS SUMMARY | 2025-06-17 09:58 | XMS_ITS | Clinical Summary ---
Author Organization [facility] Address [facility] [place] [address] Phone Care Team Providers Care Mash Tub Cooker Name Role Phone Berlin Marlow MD Primary Care Provider [phone] Allergies Active Allergy Reactions Criticality Noted Date [...] Active fluticasone propionate (FLONASE) 50 mcg/actuation Nasl [place], Suspension 2 Sprays by Nasal route daily. Active diazePAM (VALIUM) 5 mg Oral Tablet take 0.5-1 tablet by oral route every 8 hours as needed Active triamcinolone (NASACORT) 55 mcg Nasl Aerosol, SprayIndication s:Chronic rhinitis 1 [place] by Nasal route 2 times daily. 16 [...] this topic Medical Devices Implanted Type Area Development Coordinator Device Identifier Shelf Expiration Date Model / Serial / Lot 6.5 Cancellous Bone Screw 30mm - [id number] Implanted:Qty: 1 on 01/07/2018 by Martin Basilio MD at [facility] Right: Hip DAX:ORTHOPED [facility] 09/24/2022 [id number] / / [id number] Shell Acetabular Hole Cluster Hemispherical Tritanium D 52mm - [id number] Implanted:Qty: 1 on 01/07/2018 by Martin Basilio MD at [facility] Right: Hip DAX:[employer] [facility] 11/14/2022 [id number] / / [id number] Insert Trident X 3 0 Degree 36mm D - [id number] Implanted:Qty: 1 on 01/07/2018 by Martin Basilio MD at [facility] Right: Hip DAX:[employer] [facility] 08/09/2022 [id number] / / [id number] Cancellous Bone Screw 25mm - [id number] Implanted:Qty: 1 on 01/07/2018 by Martin Basilio MD at [facility] Right: Hip DAX:[employer] [facility] 11/13/[id number] / / [id number] Biolox+ Delta Head 36mm/-5 - [id number] Implanted:Qty: 1 on 01/07/2018 by Martin Basilio MD at [facility] Right: Hip DAX:ORTHOPED [facility] 10/07/2022 [id number] / / [id number] Size 4 Accolade Ii 127 Deg - [id number] Implanted:Qty: 1 on 01/07/2018 by Martin Basilio MD at [facility] Right: Hip DAX:ORTHOPED [facility] 10/09/2022 [id number] / / [id number] Procedures Procedure Name Priority Date/Time Associated Diagnosis [...] Advance Directives For more information, please contact: [phone] * Full Code (Latest Code Status on File) Date Activated Date Inactivated Comments 06/23/2022 7:54 AM 06/23/2022 10:01 PM * Full Code Date Activated Date Inactivated Comments 01/07/2018 8:52 PM 01/10/2018 7:44 PM Care Teams Mash Tub Cooker Relationship Specialty Start Date End Date Berlin Marlow MD PCP - General 04/11/11
[2025-06-17 11:00] VITALS: PULSE 69; PULSE 72
[2025-06-17] MEDS: ALBUTEROL 0.083% 2.5 MG/3 ML NEB IH (11:00)
== END 2025-06-17 23:59 | disposition home or self-care (01) ==
LOC: RT 09:55
PROVIDERS: PCP Nurse Practitioner; Visit Provider Internal Medicine Pulmonary Disease
DX: J44.9 Chronic obstructive pulmonary disease, unspecified (principal); R94.2 Abnormal results of pulmonary function studies
CPT/HCPCS: 94010; 94618; 94640